=== PATIENT | female | born 2000 | race Caucasian/White ===

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

== ENCOUNTER 2019-03-09 08:49 | Emergency (ER) | payer OTHER ==
[2019-03-09 08:53] VITALS: BP 139/74
[2019-03-09 09:48] LABS: AMORPHOUS SEDIMENT,URINE TRACE /HPF; APPEARANCE,URINE CLOUDY; BILIRUBIN,URINE NEGATIVE (NEGATIVE); COLOR,URINE YELLOW; GLUCOSE, URINE NEGATIVE (NEGATIVE); KETONES,URINE NEGATIVE (NEGATIVE); LEUKOCYTE ESTERASE,URINE TRACE (NEGATIVE); NITRITE,URINE NEGATIVE (NEGATIVE); PROTEIN,URINE NEGATIVE (NEGATIVE); URINE SPECIFIC GRAVITY 1.025; UROBILINOGEN,URINE NEGATIVE mg/dL (<2.0)
--- NOTE | 2019-03-09 11:06 | ER Document Report ---
Entered by FANI MERCADO SCRIBE 03/09/19 0924 Acting as scribe for:MANNY MARTINEZ MD ED General - General Chief Complaint: Lower Abdominal Pain Stated Complaint: ABDOMIAL PAIN Time Seen by Provider: 03/09/19 09:17 Notes: Patient is a 18-year-old female presenting to the emergency department complaining of abdominal pain. Patient states that the pain began yesterday, while she was lying down watching TV. Patient describes the pain as "muscle spasms" or harsh cramping. Patient states that the pain is constant, she went to urgent care for the pain and they told her to go get an ultrasound done. Patient states that she has concern of a UTI, she has been experiencing normal vaginal discharge, burning, and some nausea. Patient states that her last menstrual period was about 2 weeks ago on February 23. Patient denies experiencing any vaginal discharge, vomiting, recent traumas, falls, or having pain like this before. TRAVEL OUTSIDE OF THE [place] IN LAST 30 DAYS: No - Related Data Allergies/Adverse Reactions: No Known Allergies Allergy (Verified 03/09/19 08:50) Past Medical History - General Information source: Patient - Social History Smoking Status: Never Smoker Cigarette use (# per day): No Chew tobacco use (# tins/day): No Frequency of alcohol use: None Drug Abuse: None Family History: Reviewed & Not Pertinent Patient has suicidal ideation: No - [facility] [place] Patient has homicidal ideation: No Pulmonary Medical History: Reports: Hx Asthma Musculoskeletal Medical History: Reports Hx Musculoskeletal Trauma Psychiatric Medical History: Reports: Hx Attention Deficit Hyperactivity Disorder, Hx Bipolar Disorder, Hx Depression, Hx Post Traumatic Stress Disorder Past Surgical History: Reports: Hx Oral Surgery - wisdom, Hx Tonsillectomy - Immunizations Immunizations up to date: Yes Hx Diphtheria, Pertussis, Tetanus Vaccination: Yes Review of Systems - Review of Systems Constitutional: No symptoms reported EENT: No symptoms reported Cardiovascular: No symptoms reported Respiratory: No symptoms reported Gastrointestinal: See HPI, Abdominal pain, Nausea. denies: Vomiting Genitourinary: See HPI, Burning Female Genitourinary: See HPI, Vaginal discharge Musculoskeletal: No symptoms reported Skin: No symptoms reported Hematologic/Lymphatic: No symptoms reported Neurological/Psychological: No symptoms reported -: Yes All other systems reviewed and negative Physical Exam - Vital signs Vitals: Temp Pulse Resp BP Pulse Ox 97.3 F 108 H 16 139/74 H 99 03/09/19 08:52 03/09/19 08:52 03/09/19 08:52 03/09/19 08:52 03/09/19 08:52 - Notes Notes: Physical Exam: General: Alert, appears well. HEENT: Normocephalic. Atraumatic. PERRL. Extraocular movements intact. Oropharynx clear. Neck: Supple. Non-tender. Respiratory: No respiratory distress. Clear and equal breath sounds bilaterally. Cardiovascular: Regular rate and rhythm. Abdominal: Normal Inspection. Non-tender. No distension. Normal Bowel Sounds. No rebound, no guarding. Back: Non-tender. No deformity or step off. Extremities: Moves all four extremities. Upper extremities: Normal inspection. Normal ROM. Lower extremities: Normal inspection. No edema. Normal ROM. Neurological: Normal cognition. AAOx4. Normal speech. Psychological: Normal affect. Normal Mood. Skin: Warm. Dry. Normal color. Course - Re-evaluation Re-evalutation: 03/09/19 11:05 Patient left the emergency department on her own will saying that it was taking too long for her ultrasound. I was not able to talk to her she left prior to me being informed. - Vital Signs Vital signs: Temp Pulse Resp BP Pulse Ox 97.3 F 108 H 16 139/74 H 99 03/09/19 08:52 03/09/19 08:52 03/09/19 08:52 03/09/19 08:52 03/09/19 08:52 - Laboratory Laboratory results interpreted by me: 03/09/19 09:29 Ur Leukocyte Esterase TRACE H Discharge - Discharge Clinical Impression: Abdominal pain Qualifiers: Abdominal location: right upper quadrant Qualified Code(s): R10.11 - Right upper quadrant pain Condition: Good Disposition: ELOPED I personally performed the services described in the documentation, reviewed and edited the documentation which was dictated to the scribe in my presence, and it accurately records my words and actions.
== END 2019-03-09 10:50 | disposition left against medical advice (07) ==
LOC: ER 08:49
DX: R10.11 Right upper quadrant pain (principal); R10.30 Lower abdominal pain, unspecified
CPT/HCPCS: 81001; 81025; 99281

== ENCOUNTER 2019-03-10 16:27 | Emergency (ER) | payer OTHER ==
[2019-03-10 17:13] VITALS: BP 124/75
--- NOTE | 2019-03-10 17:27 | ER Document Report ---
ED Medical Screen (RME) - General Chief Complaint: Abdominal Pain Stated Complaint: STOMACH PAIN Time Seen by Provider: 03/10/19 17:22 Mode of Arrival: Ambulatory Information source: Patient Notes: 18-year-old female presented to ED for complaint of abdominal pain x3 days with vomiting starting yesterday. States she is can keep fluids down but not food. She states she is vomited 3 times since yesterday. She denies any diarrhea. She denies any fever. States her last menstrual cycle was a month ago. She states that she has had some urinary frequency and urgency but that they have a urine yesterday and it was negative. She states she has had vaginal discharge but it is white. She states the pain is on the pelvis and the left abdomen. She states she used vapor but does not smoke cigarettes drink or do any drugs. I have greeted and performed a rapid initial assessment of this patient. A comprehensive ED assessment and evaluation of the patient, analysis of test results and completion of medical decision making process will be conducted by an additional ED providers. TRAVEL OUTSIDE OF THE [place] IN LAST 30 DAYS: No - Related Data Allergies/Adverse Reactions: No Known Allergies Allergy (Verified 03/09/19 08:50) Past Medical History - Social History Chew tobacco use (# tins/day): No Frequency of alcohol use: None Drug Abuse: None - Past Medical History Cardiac Medical History: Denies: Hx Heart Attack, Hx Hypertension Pulmonary Medical History: Reports: Hx Asthma Neurological Medical History: Denies: Hx Cerebrovascular Accident, Hx Seizures Renal/ Medical History: Denies: Hx Peritoneal Dialysis GI Medical History: Denies: Hx Hepatitis, Hx Hiatal Hernia, Hx Ulcer Musculoskeltal Medical History: Reports Hx Musculoskeletal Trauma Psychiatric Medical History: Reports: Hx Attention Deficit Hyperactivity Disorder, Hx Bipolar Disorder, Hx Depression, Hx Post Traumatic Stress Disorder Infectious Medical History: Denies: Hx Hepatitis Past Surgical History: Reports: Hx Oral Surgery - wisdom, Hx Tonsillectomy. Denies: Hx Mastectomy, Hx Open Heart Surgery, Hx Pacemaker - Immunizations Immunizations up to date: Yes Hx Diphtheria, Pertussis, Tetanus Vaccination: Yes Physical Exam - Vital signs Vitals: Temp Pulse Resp BP Pulse Ox 97.9 F 105 H 12 124/75 97 03/10/19 17:10 03/10/19 17:10 03/10/19 17:10 03/10/19 17:10 03/10/19 17:10 Course - Vital Signs Vital signs: Temp Pulse Resp BP Pulse Ox 97.9 F 105 H 12 124/75 97 03/10/19 17:10 03/10/19 17:10 03/10/19 17:10 03/10/19 17:10 03/10/19 17:10
[2019-03-10 18:12] LABS: ABSOLUTE BASOPHILS # (AUTO) 0.1 10^3/uL (0.0-0.2); ABSOLUTE EOSINOPHILS # (AUTO) 0.2 10^3/uL (0.0-0.6); ABSOLUTE LYMPHOCYTES (AUTO) 3.4 10^3/uL (0.5-4.7); ABSOLUTE NEUT (AUTO) 8.4 10^3/uL (1.7-8.2); BASOPHILS % (AUTO) 0.6 % (0-2); EOSINOPHILS % (AUTO) 1.6 % (0-6); HEMATOCRIT 43.6 % (36.0-47.0); HEMOGLOBIN 14.4 g/dL (12.0-15.5); MEAN CORPUSCULAR HEMOGLOBIN 29.5 pg (27.0-33.4); MEAN CORPUSCULAR HGB CONC 33.1 g/dL (32.0-36.0); MEAN CORPUSCULAR VOLUME 89 fl (80-97); MONOCYTES % (AUTO) 7.8 % (3-13); PLATELET COUNT 286 10^3/uL (150-450); RED BLOOD COUNT 4.89 10^6/uL (3.72-5.28); RED CELL DISTRIBUTION WIDTH 13.3 % (11.5-14.0); TOTAL CELLS COUNTED % (AUTO) 100 %; WHITE BLOOD COUNT 13.1 10^3/uL (4.0-10.5)
[2019-03-10 18:27] LABS: ALBUMIN 3.8 g/dL (3.7-5.6); ALKALINE PHOSPHATASE 55 U/L (50-135); ANION GAP 8 (5-19); ASPARTATE AMINO TRANSFERASE 22 U/L (5-30); BILIRUBIN,DIRECT 0.2 mg/dL (0.0-0.4); BILIRUBIN,TOTAL 0.3 mg/dL (0.2-1.3); BLOOD UREA NITROGEN 14 mg/dL (7-20); CALCIUM 9.1 mg/dL (8.4-10.2); CARBON DIOXIDE 27 mmol/L (22-30); CHLORIDE 104 mmol/L (98-107); GLUCOSE 70 mg/dL (75-110); POTASSIUM 4.3 mmol/L (3.6-5.0); TOTAL PROTEIN 6.2 g/dL (6.3-8.2)
[2019-03-10 18:28] LABS: APPEARANCE,URINE CLEAR; BILIRUBIN,URINE NEGATIVE (NEGATIVE); COLOR,URINE YELLOW; GLUCOSE, URINE NEGATIVE (NEGATIVE); KETONES,URINE NEGATIVE (NEGATIVE); LEUKOCYTE ESTERASE,URINE TRACE (NEGATIVE); NITRITE,URINE NEGATIVE (NEGATIVE); PROTEIN,URINE NEGATIVE (NEGATIVE); URINE SPECIFIC GRAVITY 1.027; UROBILINOGEN,URINE NEGATIVE mg/dL (<2.0)
--- NOTE | 2019-03-10 18:29 | RADIOLOGY REPORT (SQ) ---
EXAM DESCRIPTION: U/S NON-OB PELVIS TV W/O DOP COMPLETED DATE/TIME: 03/10/2019 6:11 pm REASON FOR STUDY: bilateral pelvic pain COMPARISON: None. TECHNIQUE: Dynamic and static grayscale images acquired of the pelvis via transvaginal approach and recorded on PACS. Additional selected color Doppler and spectral images recorded. LIMITATIONS: None. FINDINGS: UTERUS: Contour normal. No mass. ENDOMETRIAL STRIPE: No focal or generalized thickening. No masses. CERVIX: No nabothian cysts. RIGHT OVARY AND DOPPLER: Normal size. 2.7 cm cyst. Normal arterial vascular flow without evidence fo r torsion. LEFT OVARY AND DOPPLER: Normal size. 3.1 cm complex cyst, possibly hemorrhagic. Normal arterial vas cular flow without evidence for torsion. FREE FLUID: None noted. OTHER: No other significant finding. MEASUREMENTS: UTERUS: 7.2 x 4.3 x 3.2 cm ENDOMETRIAL STRIPE: 7 mm RIGHT OVARY: 3.5 x 4.1 x 3.1 cm LEFT OVARY: 3.5 x 3.1 x 3.1 cm IMPRESSION: 3.1 cm complex left ovarian cyst, possibly hemorrhagic. TECHNICAL DOCUMENTATION: JOB ID: [id number] [place]-72 2010 [employer]- All Rights Reserved Rev-12/03 Reading location - IP/workstation name: [email or web address]
[2019-03-10] MEDS ORDERED: KETOROLAC TROMETHAMINE 60 MG/2 ML SDV IM ONE (19:43)
--- NOTE | 2019-03-10 20:15 | ER Document Report ---
ED General - General Chief Complaint: Abdominal Pain Stated Complaint: STOMACH PAIN Time Seen by Provider: 03/10/19 17:22 Primary Care Provider: ROSENDO KINCAID MD [ACTIVE STAFF] - Follow up in 3-5 days Mode of Arrival: Ambulatory Information source: Patient, [facility] Records Notes: 18-year-old female with asthma, depression, bipolar disorder presents with 3 days of left lower quadrant pain that she describes as sharp, intermittent and without radiation. Patient states that she did have associated nausea and vomiting that has resolved. She denies any dysuria, hematuria, vaginal discharge. She is sexually active with her only and has no concern for STD. She does report recent STD testing in [place]. Patient does report a family history of ovarian cysts. Patient did come to the emergency department yesterday but left prior to completion of her evaluation because she stated that it was taking too long for the ultrasound to be completed. TRAVEL OUTSIDE OF THE [place] IN LAST 30 DAYS: No - HPI Onset: Other Onset/Duration: Gradual, Intermittent, Better Quality of pain: Sharp Severity: Mild Associated symptoms: Nausea - Resolved, Vomiting - Resolved. denies: Chest pain, Diarrhea, Fever, Shortness of breath, Sweating Exacerbated by: Denies Relieved by: Denies Similar symptoms previously: Yes Recently seen / treated by doctor: No - Related Data Allergies/Adverse Reactions: No Known Allergies Allergy (Verified 03/09/19 08:50) Past Medical History - General Information source: Patient - Social History Smoking Status: Never Smoker Chew tobacco use (# tins/day): No Frequency of alcohol use: None Drug Abuse: None Lives with: Spouse/Significant other Family History: Reviewed & Not Pertinent Patient has suicidal ideation: No Patient has homicidal ideation: No - Past Medical History Cardiac Medical History: Denies: Hx Heart Attack, Hx Hypertension Pulmonary Medical History: Reports: Hx Asthma Neurological Medical History: Denies: Hx Cerebrovascular Accident, Hx Seizures Renal/ Medical History: Denies: Hx Peritoneal Dialysis GI Medical History: Denies: Hx Hepatitis, Hx Hiatal Hernia, Hx Ulcer Musculoskeletal Medical History: Reports Hx Musculoskeletal Trauma Psychiatric Medical History: Reports: Hx Attention Deficit Hyperactivity Disorder, Hx Bipolar Disorder, Hx Depression, Hx Post Traumatic Stress Disorder Infectious Medical History: Denies: Hx Hepatitis Past Surgical History: Reports: Hx Oral Surgery - wisdom, Hx Tonsillectomy. Denies: Hx Mastectomy, Hx Open Heart Surgery, Hx Pacemaker - Immunizations Immunizations up to date: Yes Hx Diphtheria, Pertussis, Tetanus Vaccination: Yes Review of Systems - Review of Systems Notes: REVIEW OF SYSTEMS: CONSTITUTIONAL : Denies fever, chills, or sweats. Denies recent illness. Denies weight loss, recent hospitalizations. EENT: Denies visual changes, eye pain. Denies sore throat, oral lesions, difficulty swallowing. CARDIOVASCULAR: Denies chest pain. Denies palpitations. Denies lower extremity edema. RESPIRATORY: Denies cough. Denies shortness of breath, wheezing. GASTROINTESTINAL: Denies abdominal distention. Denies diarrhea. Denies blood in vomitus, stools, or per rectum. Denies black, tarry stools. Denies constipation. GENITOURINARY: Denies difficulty urinating, painful urination, frequency, blood in urine, or vaginal discharge. MUSCULOSKELETAL: Denies back or neck pain or stiffness. Denies joint pain or swelling. SKIN: Denies rash, lesions or sores. HEMATOLOGIC : Denies easy bruising or bleeding. LYMPHATIC: Denies swollen glands. NEUROLOGICAL: Denies confusion or altered mental status. Denies loss of consciousness. Denies dizziness or lightheadedness. Denies headache. Denies weakness or paralysis. Denies problems difficulty with ambulation, slurred speech. Denies sensory loss, numbness, or tingling. Denies seizures. PSYCHIATRIC: Denies anxiety or stress. Denies depression, suicidal ideation, or homicidal ideation. Denies visual or auditory hallucinations. Physical Exam - Vital signs Vitals: Temp Pulse Resp BP Pulse Ox 97.9 F 105 H 12 124/75 97 03/10/19 17:10 03/10/19 17:10 03/10/19 17:10 03/10/19 17:10 03/10/19 17:10 - Notes Notes: PHYSICAL EXAMINATION: GENERAL: Well-appearing, well-nourished and in no acute distress. HEAD: Atraumatic, normocephalic. EYES: Pupils equal round and reactive to light, extraocular movements intact, conjunctiva are normal. ENT: Nares patent, oropharynx clear without exudates. Moist mucous membranes. NECK: Normal range of motion, supple without lymphadenopathy LUNGS: Breath sounds clear to auscultation bilaterally and equal. No wheezes rales or rhonchi. HEART: Regular rate and rhythm without murmurs ABDOMEN: Soft, tenderness with palpation to the left lower quadrant, n ondistended abdomen. No guarding, no rebound. No masses appreciated. Female : Declined Musculoskeletal: Normal range of motion, no pitting or edema. No cyanosis. NEUROLOGICAL: Cranial nerves grossly intact. Normal speech, normal gait. Normal sensory, motor exams PSYCH: Normal mood, normal affect. SKIN: Warm, Dry, normal turgor, no rashes or lesions noted. Course - Re-evaluation Re-evalutation: 03/10/19 20:21 Laboratory 03/10/19 03/10/19 03/10/19 17:30 17:40 17:40 WBC 13.1 H RBC 4.89 Hgb 14.4 Hct 43.6 MCV 89 MCH 29.5 MCHC 33.1 RDW 13.3 Plt Count 286 Lymph % (Auto) 26.0 Porter % (Auto) 7.8 Eos % (Auto) 1.6 Baso % (Auto) 0.6 Absolute Neuts (auto) 8.4 H Absolute Lymphs (auto) 3.4 Absolute Monos (auto) 1.0 Absolute Eos (auto) 0.2 Absolute Basos (auto) 0.1 Seg Neutrophils % 64.0 Sodium 138.7 Potassium 4.3 Chloride 104 Carbon Dioxide 27 Anion Gap 8 BUN 14 Creatinine 0.73 Est GFR ( Amer) > 60 Est GFR (MDRD) Non-Af > 60 Glucose 70 L Calcium 9.1 Total Bilirubin 0.3 Direct Bilirubin 0.2 Neonat Total Bilirubin Not Reportable Neonat Direct Bilirubin Not Reportable Neonat Indirect Bili Not Reportable AST 22 ALT 15 Alkaline Phosphatase 55 Total Protein 6.2 L Albumin 3.8 Beta HCG, Quant < 2.39 Total Beta HCG NEGATIVE Urine Color YELLOW Urine Appearance CLEAR Urine pH 5.0 Ur Specific [place] 1.027 Urine Protein NEGATIVE Urine Glucose (UA) NEGATIVE Urine Ketones NEGATIVE Urine Blood NEGATIVE Urine Nitrite NEGATIVE Urine Bilirubin NEGATIVE Urine Urobilinogen NEGATIVE Ur Leukocyte Esterase TRACE H Urine WBC (Auto) 17 Urine RBC (Auto) 1 Squamous Epi Cells Auto <1 Urine Mucus (Auto) FEW Urine Ascorbic Acid NEGATIVE Transvaginal US 03/10/19 17:23 IMPRESSION: 3.1 cm complex left ovarian cyst, possibly hemorrhagic. Temp Pulse Resp BP Pulse Ox 97.9 F 105 H 12 124/75 97 03/10/19 17:10 03/10/19 17:10 03/10/19 17:10 03/10/19 17:10 03/10/19 17:10 18-year-old female presents with left lower quadrant abdominal pain for 3 days. Vitals were reviewed upon arrival and patient is mildly tachycardic but afebrile. She does not appear toxic or dehydrated. She is in no acute distress. Exam is significant for mild tenderness with palpation to the left lower quadrant without guarding or rebound. CBC, CMP, urinalysis and tests are unremarkable. Transvaginal ultrasound was obtained and does show a 3.1 cm complex left ovarian cyst which is possibly hemorrhagic. Patient did receive IM Toradol. She states she has nausea medication at home. She was provided copies of her ultrasound and instructed that she must follow-up with MR TEACHER. Patient was discharged home with instructions to take Motrin, Mayer for severe pain. Patient is agreeable and requesting discharge home as she states that "I am very hungry and tired of being here". Patient was evaluated and treated as appropriate for the patient's presenting symptoms and complaint, with consideration of any critical or life threatening conditions that may be associated with their obtained history and exam as noted above. All results were discussed with patient. Patient provided the opportunity to ask questions, and express concerns. Patient was educated on treatments based on their presumed diagnosis as noted above. At this time we will discharge the patient with return precautions and follow-up recommendations. Verbal discharge instructions given a the bedside. Medication warnings reviewed. Patient is in agreement with this plan and has verbalized understanding of return precautions. After careful consideration I feel that that patient can be safely discharged from the emergency department, they were advised to followup with a primary care physician in 2-3 days. Dictation on this chart was performed using voice recognition software and may result in unintended grammatical, spelling, syntax or errors. - Vital Signs Vital signs: Temp Pulse Resp BP Pulse Ox 97.9 F 105 H 12 124/75 97 03/10/19 17:10 03/10/19 17:10 03/10/19 17:10 03/10/19 17:10 03/10/19 17:10 - Laboratory Result Diagrams: 03/10/19 17:40 03/10/19 17:40 Laboratory results interpreted by me: 03/10/19 03/10/19 03/10/19 17:30 17:40 17:40 WBC 13.1 H Absolute Neuts (auto) 8.4 H Glucose 70 L Total Protein 6.2 L Ur Leukocyte Esterase TRACE H - Diagnostic Test Radiology reviewed: Image reviewed, Reports reviewed Discharge - Discharge Clinical Impression: Left lower quadrant abdominal pain, Hemorrhagic cyst of left ovary Condition: Good Disposition: HOME, SELF-CARE Instructions: Abdominal Pain ([facility]), Nausea or Vomiting, Nonspecific ([facility]), Ovarian Cyst ([facility]), Toradol Injection ([facility]) Additional Instructions: Today been diagnosed with an ovarian cyst. These typically occur in the middle of your typical menstrual cycle. The pain should last for no more than 3-4 days. For your pain: Take ibuprofen 600 mg and acetaminophen 1000 mg every 6 hours together as needed for pain. If this does not control your pain you may take 1 Mayer every 6 hours hours as needed. Please be very careful about using the oral Mayer and only use this for severe pain. Please follow-up with your MR TEACHER regarding today's visit. If you have multiple recurrent cyst that continue to cause you pain like this, you may require hormone therapy such as oral control pills to prevent recurrence of the same. Return if you develop fever, nausea, vomiting, worsening abdominal pain, pass out, or have any other symptoms that are worrisome to you. Prescriptions: Hydrocodone/Acetaminophen [Mayer 5-325 mg Tablet] 1 tab PO Q6H #10 tablet Forms: Smoking Cessation Education Referrals: ROSENDO KINCAID MD [ACTIVE STAFF] - Follow up in 3-5 days
== END 2019-03-10 20:30 | disposition home or self-care (01) ==
LOC: ER 16:27
DX: N83.202 Unspecified ovarian cyst, left side (principal); R10.32 Left lower quadrant pain; R11.2 Nausea with vomiting, unspecified; J45.909 Unspecified asthma, uncomplicated
CPT/HCPCS: 99284; 96374; 36415; 84702; 85025; 80053; 81001; 76830; J1885

== ENCOUNTER 2019-07-02 00:43 | Emergency (ER) | payer OTHER ==
[2019-07-02 01:48] LABS: APPEARANCE,URINE CLEAR; BILIRUBIN,URINE NEGATIVE (NEGATIVE); COLOR,URINE YELLOW; GLUCOSE, URINE NEGATIVE (NEGATIVE); KETONES,URINE NEGATIVE (NEGATIVE); LEUKOCYTE ESTERASE,URINE NEGATIVE (NEGATIVE); NITRITE,URINE NEGATIVE (NEGATIVE); PROTEIN,URINE NEGATIVE (NEGATIVE); URINE SPECIFIC GRAVITY 1.021; UROBILINOGEN,URINE NEGATIVE mg/dL (<2.0)
[2019-07-02 03:34] VITALS: BP 120/78
== END 2019-07-02 04:54 | disposition left against medical advice (07) ==
LOC: ER 00:43
DX: Z53.21 Procedure and treatment not carried out due to patient leaving prior to being seen by health care provider (principal)
CPT/HCPCS: 81001; 81025

== ENCOUNTER 2019-07-20 19:16 | Emergency (ER) | payer MEDICAID, OTHER ==
[2019-07-20] MEDS ORDERED: ONDANSETRON 4 MG TAB.RAPDIS PO ONE (21:13)
[2019-07-20] MEDS ORDERED: NORMAL SALINE 1000 ML 1,000 ML IV ONE (21:14)
--- NOTE | 2019-07-20 21:15 | ER Document Report ---
ED Medical Screen (RME) - General Chief Complaint: Vomiting Stated Complaint: VOMITING Time Seen by Provider: 07/20/19 21:11 TRAVEL OUTSIDE OF THE [place] IN LAST 30 DAYS: No - HPI Notes: 07/20/19 21:14 Patient is a 19-year-old female no significant past medical history presents complaining of nausea, vomiting, right upper quadrant abdominal pain that began over the past several days. Patient states that she is 2 months late on her menstrual cycle and had questionable urine test at the health department. Denies drug allergies. No fever. I have treated and performed a rapid initial assessment of this patient. A comprehensive ED assessment and evaluation of the patient, analysis of test results and completion of medical decision making process will be conducted by additional ED providers. PHYSICAL EXAMINATION: GENERAL: Well-appearing, well-nourished and in no acute distress. A&Ox4. Answers questions appropriately. Abdomen: Limited exam in triage, mild tenderness right upper qu adrant/epigastrium. No CVA tenderness. - Related Data Allergies/Adverse Reactions: No Known Allergies Allergy (Verified 07/20/19 21:09) Past Medical History - Past Medical History Cardiac Medical History: Denies: Hx Heart Attack, Hx Hypertension Pulmonary Medical History: Reports: Hx Asthma Neurological Medical History: Denies: Hx Cerebrovascular Accident, Hx Seizures Renal/ Medical History: Denies: Hx Peritoneal Dialysis GI Medical History: Denies: Hx Hepatitis, Hx Hiatal Hernia, Hx Ulcer Musculoskeltal Medical History: Reports Hx Musculoskeletal Trauma Psychiatric Medical History: Reports: Hx Attention Deficit Hyperactivity Disorder, Hx Bipolar Disorder, Hx Depression, Hx Post Traumatic Stress Disorder Infectious Medical History: Denies: Hx Hepatitis Past Surgical History: Reports: Hx Oral Surgery - wisdom, Hx Tonsillectomy. Denies: Hx Mastectomy, Hx Open Heart Surgery, Hx Pacemaker - Immunizations Immunizations up to date: Yes Hx Diphtheria, Pertussis, Tetanus Vaccination: Yes Physical Exam - Vital signs Vitals: Temp Pulse Resp BP Pulse Ox 97.8 F 108 H 16 149/72 H 98 07/20/19 19:31 07/20/19 19:31 07/20/19 19:31 07/20/19 19:31 07/20/19 19:31 Course - Vital Signs Vital signs: Temp Pulse Resp BP Pulse Ox 97.8 F 108 H 16 149/72 H 98 07/20/19 19:31 07/20/19 19:31 07/20/19 19:31 07/20/19 19:31 07/20/19 19:31
[2019-07-20 22:26] LABS: ABSOLUTE EOSINOPHILS # (AUTO) 0.1 10^3/uL (0.0-0.6); ABSOLUTE LYMPHOCYTES (AUTO) 2.4 10^3/uL (0.5-4.7); ABSOLUTE MONOCYTES (AUTO) 0.7 10^3/uL (0.1-1.4); ABSOLUTE NEUT (AUTO) 6.4 10^3/uL (1.7-8.2); BASOPHILS % (AUTO) 0.4 % (0-2); EOSINOPHILS % (AUTO) 0.9 % (0-6); HEMATOCRIT 41.3 % (36.0-47.0); LYMPHOCYTES % (AUTO) 25.1 % (13-45); MEAN CORPUSCULAR HEMOGLOBIN 29.6 pg (27.0-33.4); MEAN CORPUSCULAR VOLUME 87 fl (80-97); MONOCYTES % (AUTO) 7.5 % (3-13); PLATELET COUNT 263 10^3/uL (150-450); RED BLOOD COUNT 4.73 10^6/uL (3.72-5.28); RED CELL DISTRIBUTION WIDTH 13.5 % (11.5-14.0); SEGMENTED NEUTROPHILS % (AUTO) 66.1 % (42-78); TOTAL CELLS COUNTED % (AUTO) 100 %; WHITE BLOOD COUNT 9.6 10^3/uL (4.0-10.5)
[2019-07-20 22:34] LABS: APPEARANCE,URINE CLOUDY; BILIRUBIN,URINE NEGATIVE (NEGATIVE); COLOR,URINE YELLOW; GLUCOSE, URINE NEGATIVE (NEGATIVE); KETONES,URINE NEGATIVE (NEGATIVE); PROTEIN,URINE 30 mg/dL (NEGATIVE); UROBILINOGEN,URINE NEGATIVE mg/dL (<2.0)
[2019-07-20 22:43] LABS: ALBUMIN 4.8 g/dL (3.5-5.0); ALKALINE PHOSPHATASE 70 U/L (38-126); ANION GAP 12 (5-19); ASPARTATE AMINO TRANSFERASE 29 U/L (14-36); BILIRUBIN,DIRECT 0.3 mg/dL (0.0-0.4); BILIRUBIN,TOTAL 0.3 mg/dL (0.2-1.3); BLOOD UREA NITROGEN 21 mg/dL (7-20); CALCIUM 9.9 mg/dL (8.4-10.2); CARBON DIOXIDE 28 mmol/L (22-30); CHLORIDE 101 mmol/L (98-107); GLUCOSE 82 mg/dL (75-110); POTASSIUM 4.6 mmol/L (3.6-5.0)
--- NOTE | 2019-07-20 23:38 | RADIOLOGY REPORT (SQ) ---
CLINICAL HISTORY: RUQ pain COMPARISON: None. TECHNIQUE: US ABDOMEN LIMITED on 07/20/2019 9:13 PM SHOOTER'S HELPER FINDINGS: Liver is fatty in echotexture. Common bile but measures 4 mm. Portal vein is patent. Gallbladder is slightly contracted without wall thickening, stones or pericholecystic fluid. Right kidney measures 9.7 cm. IMPRESSION: Hepatic steatosis. Otherwise unremarkable study.
--- NOTE | 2019-07-21 00:08 | ER Document Report ---
ED General - General Chief Complaint: Abdominal Pain Stated Complaint: VOMITING Time Seen by Provider: 07/20/19 21:11 TRAVEL OUTSIDE OF THE [place] IN LAST 30 DAYS: No - HPI Notes: Ms. Ferrer is a 19-year-old nulligravida who has not had a menstrual period in 2 months. She went to the health department and was told that she had "indeterminate" test. She basically came in here tonight because she went to find out if she was or not. She reports that she has been having some unusual cravings for food. She is not on any contraception. Takes no regular medications. No known allergies. Says she gets some occasional bloating and indigestion. She has intermittently complained of some cramping in right upper quadrant. - Related Data Allergies/Adverse Reactions: No Known Allergies Allergy (Verified 07/20/19 22:35) Past Medical History - General Information source: Patient, Relative - Social History Smoking Status: Never Smoker Family History: Reviewed & Not Pertinent Patient has suicidal ideation: No Patient has homicidal ideation: No - Past Medical History Cardiac Medical History: Denies: Hx Heart Attack, Hx Hypertension Pulmonary Medical History: Reports: Hx Asthma Neurological Medical History: Denies: Hx Cerebrovascular Accident, Hx Seizures Renal/ Medical History: Denies: Hx Peritoneal Dialysis GI Medical History: Denies: Hx Hepatitis, Hx Hiatal Hernia, Hx Ulcer Musculoskeletal Medical History: Reports Hx Musculoskeletal Trauma Psychiatric Medical History: Reports: Hx Attention Deficit Hyperactivity Disorder, Hx Bipolar Disorder, Hx Depression, Hx Post Traumatic Stress Disorder Infectious Medical History: Denies: Hx Hepatitis Past Surgical History: Reports: Hx Oral Surgery - wisdom, Hx Tonsillectomy. Denies: Hx Mastectomy, Hx Open Heart Surgery, Hx Pacemaker - Immunizations Immunizations up to date: Yes Hx Diphtheria, Pertussis, Tetanus Vaccination: Yes Review of Systems - Review of Systems Notes: Constitutional: Negative for fever. HENT: Negative for sore throat. Eyes: Negative for visual changes. Cardiovascular: Negative for chest pain. Respiratory: Negative for shortness of breath. Gastrointestinal: As per HPI. Genitourinary: As per HPI. Musculoskeletal: Negative for back pain. Skin: Negative for rash. Neurological: Negative for headaches, weakness or numbness. 10 point ROS negative except as marked above and in HPI. Physical Exam - Vital signs Vitals: Temp Pulse Resp BP Pulse Ox 97.8 F 108 H 16 149/72 H 98 07/20/19 19:31 07/20/19 19:31 07/20/19 19:31 07/20/19 19:31 07/20/19 19:31 - Notes Notes: GENERAL: Somewhat obese female of approximately stated age well-developed well- nourished appearing in no acute distress. SKIN: Good turgor no rashes. HEAD: Normocephalic atraumatic. EYES: PERRLA. EOMI. Conjunctivae and sclerae clear. EARS: CANALS AND TMS CLEAR. NOSE: CLEAR. MOUTH: Moist mucosa. Good dentition. No stridor or edema. No drooling. NECK: Supple. No masses or thyromegaly. No adenopathy. Carotids 2+ without bruits. No JVD. BACK: Symmetrical without tenderness. CHEST: Respirations unlabored. Breath sounds clear and symmetrical. HEART: Regular rhythm. No murmur gallop or rub. ABDOMEN: Obese. Soft nontender without masses, organomegaly or rebound. Bowel sounds normally active. No bruits. GENITALIA: Deferred. EXTREMITIES: No edema. No calf tenderness. Cap refill less than 1.5 seconds. Dorsalis pedis and posterior tibial pulses 3+ and symmetrical. NEUROLOGICAL: GCS 15. Alert and oriented x3. Normal gait. Fluent speech. Cranial nerves II through XII intact. Sensorimotor and cerebellar normal. Normal tone. PSYCHIATRIC: Appropriate affect. Course - Re-evaluation Re-evalutation: 07/21/19 00:05 test is negative here. Abdominal ultrasound has been ordered by the midlevel provider for saw this patient this was reported by the radiologist as showing some hepatic steatosis. I talked to the patient and her male proof tester and recommended outpatient follow-up with a glove parts cutter regarding her secondary amenorrhea. - Vital Signs Vital signs: Temp Pulse Resp BP Pulse Ox 97.8 F 108 H 16 149/72 H 98 07/20/19 19:31 07/20/19 19:31 07/20/19 19:31 07/20/19 19:31 07/20/19 19:31 - Laboratory Result Diagrams: 07/20/19 21:35 07/20/19 21:35 Laboratory results interpreted by me: 07/20/19 07/20/19 21:35 21:35 BUN 21 H Urine Protein 30 H Leukocyte Esterase Rfl TRACE H Discharge - Discharge Clinical Impression: Secondary amenorrhea Condition: Stable Disposition: HOME, SELF-CARE Additional Instructions: Follow-up with referral glove parts cutter. Referrals: KIARA BRIGHT MD [ACTIVE STAFF] - Follow up as needed
[2019-07-21 00:19] VITALS: BP 118/62
== END 2019-07-21 00:19 | disposition home or self-care (01) ==
LOC: ER 19:16
DX: N91.1 Secondary amenorrhea (principal); Z32.02 Encounter for pregnancy test, result negative; K76.0 Fatty (change of) liver, not elsewhere classified; R10.11 Right upper quadrant pain; E66.9 Obesity, unspecified; J45.909 Unspecified asthma, uncomplicated
CPT/HCPCS: 99284; 96360; 36415; 84702; 83690; 85025; 80053; 81001; 76705; J7030

== ENCOUNTER 2019-08-06 17:40 | Emergency (ER) | payer MEDICAID ==
[2019-08-06 17:49] VITALS: BP 109/75
--- NOTE | 2019-08-06 18:09 | ER Document Report ---
HPI - HPI Time Seen by Provider: 08/06/19 18:03 Pain Level: 1 Notes: Patient is a 19-year-old female no significant past medical history aside from asthma who presents complaining of right wrist pain status post injury yesterday. Patient states that she hit her wrist off of a desk. She has had some pain in that area since then but does not radiate. Denies drug allergies. She does not want any Tylenol or Motrin at this time. Denies any headache, fever, URI, sore throat, chest pain, palpitations, syncope, cough, shortness of breath, wheeze, dyspnea, abdominal pain, nausea/vomiting/diarrhea, urinary retention, dysuria, hematuria, loss of control of bowel or bladder, numbness/tingling, muscle paralysis/weakness, or rash. - ROS Systems Reviewed and Negative: Yes All other systems reviewed and negative - REPRODUCTIVE Reproductive: DENIES: : Past Medical History - Social History Smoking Status: Current Some Day Smoker Family History: Reviewed & Not Pertinent Patient has suicidal ideation: No Patient has homicidal ideation: No - Past Medical History Cardiac Medical History: Denies: Hx Heart Attack, Hx Hypertension Pulmonary Medical History: Reports: Hx Asthma Neurological Medical History: Denies: Hx Cerebrovascular Accident, Hx Seizures Renal/ Medical History: Denies: Hx Peritoneal Dialysis GI Medical History: Denies: Hx Hepatitis, Hx Hiatal Hernia, Hx Ulcer Musculoskeletal Medical History: Reports Hx Musculoskeletal Trauma Psychiatric Medical History: Reports: Hx Attention Deficit Hyperactivity Disorder, Hx Bipolar Disorder, Hx Depression, Hx Post Traumatic Stress Disorder Infectious Medical History: Denies: Hx Hepatitis Past Surgical History: Reports: Hx Oral Surgery - wisdom, Hx Tonsillectomy. Denies: Hx Mastectomy, Hx Open Heart Surgery, Hx Pacemaker - Immunizations Immunizations up to date: Yes Hx Diphtheria, Pertussis, Tetanus Vaccination: Yes Vertical Provider Document - CONSTITUTIONAL Agree With Documented VS: Yes Notes: PHYSICAL EXAMINATION: GENERAL: Well-appearing, well-nourished and in no acute distress. HEAD: Atraumatic, normocephalic. NECK: Normal range of motion, supple without lymphadenopathy. No midline tenderness. LUNGS: Breath sounds clear to auscultation bilaterally and equal. No wheezes rales or rhonchi. HEART: Regular rate and rhythm without murmurs, rubs, gallops. Musculoskeletal: Rt hand/wrist: No erythema, warmth, ecchymosis, deformity, or swelling noted. N/V intact distal. FROM to passive/active at the wrist. Strength 5+/5 to usability strategist. No scaphoid tenderness. + tenderness distal ulnar wrist to palp. No other bony tenderness. Gamekeeper negative. Extremities: No cyanosis, clubbing, or edema b/l. Peripheral pulses 2+. Capillary refill less than 3 seconds. NEUROLOGICAL: Normal speech, normal gait. Normal sensory, motor exams otherwise unremarkable PSYCH: Normal mood, normal affect. SKIN: see above. No rash - INFECTION CONTROL TRAVEL OUTSIDE OF THE [place] IN LAST 30 DAYS: No Course - Re-evaluation Re-evalutation: 08/06/19 Patient is an afebrile, well-hydrated, 19-year-old female who presents to the ED with rt wrist pain which I suspect to be a contusion. Vitals are acceptable without any significant tachycardia, tachypnea, or hypoxia. PE is otherwise unremarkable for any neurovascular compromise, obvious tendon/ligament rupture, obvious fracture/dislocation, septic joint. X-ray was unremarkable for any acute pathology. Cock up splint provided today. Patient declined any Tylenol or ice. Patient is nontoxic-appearing. No other labs or imaging warranted at this time based on H&P. Conservative measures otherwise for symptoms. Recheck with your PCM in 3-5 days. Consider consult orthopedics. Return to the ED with any worsening/concerning symptoms otherwise as reviewed in discharge. Patient is in agreement. - Vital Signs Vital signs: Temp Pulse Resp BP Pulse Ox 98.4 F 95 20 109/75 100 08/06/19 17:48 08/06/19 17:48 08/06/19 17:48 08/06/19 17:48 08/06/19 17:48 Discharge - Discharge Clinical Impression: Right wrist pain Condition: Stable Disposition: HOME, SELF-CARE Additional Instructions: Rest, Ice, Compression, Elevation Tylenol/ibuprofen as needed Light stretches daily Strength exercises as able Moist heat and massage may help F/u with your PCP in 3-5 days for a recheck Consider consult(s) with Orthopedics/physical therapy for ongoing/worsening symptoms Return to the ED with any worsening symptoms and/or development of fever, headache, chest pain, palpitations, syncope, shortness of breath, trouble breathing, abdominal pain, n/v/d, muscle weakness/paralysis, numbness/tingling, swelling, redness, or other worsening symptoms that are concerning to you. Referrals: [facility] ([facility]) [Provider Group] - Follow up as needed
--- NOTE | 2019-08-06 18:59 | RADIOLOGY REPORT (SQ) ---
EXAM DESCRIPTION: WRIST RIGHT 3 VIEWS COMPLETED DATE/TIME: 08/06/2019 6:33 pm REASON FOR STUDY: rt ulnar wrist pain s/p injury COMPARISON: None. EXAM PARAMETERS: NUMBER OF VIEWS: Three views. TECHNIQUE: AP, lateral and oblique radiographic images acquired of the right wrist. LIMITATIONS: None. FINDINGS: MINERALIZATION: Normal. BONES: No acute fracture or dislocation. No worrisome bone lesions. JOINTS: No effusion. SOFT TISSUES: No significant soft tissue swelling. No radiopaque foreign body. OTHER: No other significant finding. IMPRESSION: NO FRACTURE. TECHNICAL DOCUMENTATION: JOB ID: [id number] [id number] [employer]- All Rights Reserved Reading location - IP/workstation name: [email or web address]
== END 2019-08-06 19:11 | disposition home or self-care (01) ==
LOC: ER 17:40
DX: M25.531 Pain in right wrist (principal); W22.03XA Walked into furniture, initial encounter; F17.200 Nicotine dependence, unspecified, uncomplicated; J45.909 Unspecified asthma, uncomplicated; I10 Essential (primary) hypertension
CPT/HCPCS: 99283; 73110; L3908

== ENCOUNTER 2019-10-07 17:56 | Emergency (ER) | payer MEDICAID ==
[2019-10-07 17:59] VITALS: BP 128/77
--- NOTE | 2019-10-07 18:03 | ER Document Report ---
HPI - HPI Time Seen by Provider: 10/07/19 17:59 Onset: Last week Onset/Duration: Waxing and waning Quality of pain: Achy Associated Symptoms: None Notes: This 19-year-old female presented to the emergency room today stating that she last had a full menstrual period May she spotted in July she has not had a menstrual period since she is historically regular on her menstrual. States s he followed up with her MANAGER UNIT in July and has not followed up since. - REPRODUCTIVE Reproductive: DENIES: : Past Medical History - Social History Smoking Status: Current Every Day Smoker Cigarette use (# per day): Yes Chew tobacco use (# tins/day): No Smoking Education Provided: No Family History: Reviewed & Not Pertinent - Past Medical History Cardiac Medical History: Denies: Hx Heart Attack, Hx Hypertension Pulmonary Medical History: Reports: Hx Asthma Neurological Medical History: Denies: Hx Cerebrovascular Accident, Hx Seizures Renal/ Medical History: Denies: Hx Peritoneal Dialysis GI Medical History: Denies: Hx Hepatitis, Hx Hiatal Hernia, Hx Ulcer Musculoskeletal Medical History: Reports Hx Musculoskeletal Trauma Psychiatric Medical History: Reports: Hx Attention Deficit Hyperactivity Disorder, Hx Bipolar Disorder, Hx Depression, Hx Post Traumatic Stress Disorder Infectious Medical History: Denies: Hx Hepatitis Past Surgical History: Reports: Hx Oral Surgery - wisdom, Hx Tonsillectomy. Denies: Hx Mastectomy, Hx Open Heart Surgery, Hx Pacemaker - Immunizations Immunizations up to date: Yes Hx Diphtheria, Pertussis, Tetanus Vaccination: Yes Vertical Provider Document - CONSTITUTIONAL Exam Limitations: No Limitations - INFECTION CONTROL TRAVEL OUTSIDE OF THE [place] IN LAST 30 DAYS: No - HEENT HEENT: Atraumatic, Conjuctival Injection, Normocephalic, PERRLA - NECK Neck: Normal Inspection - RESPIRATORY Respiratory: Breath Sounds Normal - CARDIOVASCULAR Cardiovascular: Regular Rate, Regular Rhythm Course - Vital Signs Vital signs: Temp Pulse Resp BP Pulse Ox 97.8 F 93 18 128/77 H 98 10/07/19 17:59 10/07/19 17:59 10/07/19 17:59 10/07/19 17:59 10/07/19 17:59 - Laboratory Laboratory results interpreted by me: 10/07/19 18:55 Labs- All tests 24 hr 10/07/19 18:23 Urine Color YELLOW Urine Appearance CLEAR Urine pH 7.0 Ur Specific [place] 1.030 Urine Protein 30 H Urine Glucose (UA) NEGATIVE Urine Ketones NEGATIVE Urine Blood NEGATIVE Urine Nitrite NEGATIVE Urine Bilirubin NEGATIVE Urine Urobilinogen NEGATIVE Ur Leukocyte Esterase NEGATIVE Urine WBC (Auto) 2 Urine RBC (Auto) 2 Squamous Epi Cells Auto 1 Urine Mucus (Auto) MANY Urine Ascorbic Acid NEGATIVE Urine HCG, Qual NEGATIVE Discharge - Discharge Clinical Impression: Mittelschmerz phenomenon Condition: Good Disposition: HOME, SELF-CARE Additional Instructions: Must follow-up with MANAGER UNIT in 2 to 3 days. Increase fluid intake rest return to the emergency room for any change worsening condition. Medicine as prescribed. Return for any change worsening condition. Prescriptions: Naproxen Sodium [Naproxen Sodium ER] 500 mg PO Q12 PRN #20 tablet.sa PRN Reason:
[2019-10-07 18:31] LABS: APPEARANCE,URINE CLEAR; BILIRUBIN,URINE NEGATIVE (NEGATIVE); COLOR,URINE YELLOW; GLUCOSE, URINE NEGATIVE (NEGATIVE); KETONES,URINE NEGATIVE (NEGATIVE); LEUKOCYTE ESTERASE,URINE NEGATIVE (NEGATIVE); NITRITE,URINE NEGATIVE (NEGATIVE); PROTEIN,URINE 30 mg/dL (NEGATIVE); UROBILINOGEN,URINE NEGATIVE mg/dL (<2.0)
== END 2019-10-07 19:02 | disposition home or self-care (01) ==
LOC: ER 17:56
DX: N94.0 Mittelschmerz (principal); F17.210 Nicotine dependence, cigarettes, uncomplicated; J45.909 Unspecified asthma, uncomplicated
CPT/HCPCS: 81001; 81025; 99284

== ENCOUNTER 2019-10-18 08:16 | Emergency (ER) | payer MEDICAID ==
--- NOTE | 2019-10-18 08:44 | ER Document Report ---
ED General - General Mode of Arrival: Ambulatory Information source: Patient TRAVEL OUTSIDE OF THE [place] IN LAST 30 DAYS: No - General Chief Complaint: Eye Problem Stated Complaint: EYE IRRITATION Time Seen by Provider: 10/18/19 08:44 Primary Care Provider: BUTCH JACQUES MD [ACTIVE STAFF] - Follow up in 3-5 days - Related Data Allergies/Adverse Reactions: No Known Allergies Allergy (Verified 10/18/19 08:31) Past Medical History - Social History Smoking Status: Never Smoker Chew tobacco use (# tins/day): No Frequency of alcohol use: None Drug Abuse: None Family History: Reviewed & Not Pertinent Patient has suicidal ideation: No Patient has homicidal ideation: No - Past Medical History Cardiac Medical History: Denies: Hx Heart Attack, Hx Hypertension Pulmonary Medical History: Reports: Hx Asthma Neurological Medical History: Denies: Hx Cerebrovascular Accident, Hx Seizures Renal/ Medical History: Denies: Hx Peritoneal Dialysis GI Medical History: Denies: Hx Hepatitis, Hx Hiatal Hernia, Hx Ulcer Musculoskeletal Medical History: Reports Hx Musculoskeletal Trauma Psychiatric Medical History: Reports: Hx Attention Deficit Hyperactivity Disorder, Hx Bipolar Disorder, Hx Depression, Hx Post Traumatic Stress Disorder Infectious Medical History: Denies: Hx Hepatitis Past Surgical History: Reports: Hx Oral Surgery - wisdom, Hx Tonsillectomy. Denies: Hx Mastectomy, Hx Open Heart Surgery, Hx Pacemaker - Immunizations Immunizations up to date: Yes Hx Diphtheria, Pertussis, Tetanus Vaccination: Yes Physical Exam - Vital signs Vitals: Temp Pulse Resp BP Pulse Ox 98.2 F 101 H 18 140/79 H 100 10/18/19 08:16 10/18/19 08:16 10/18/19 08:16 10/18/19 08:16 10/18/19 08:16 Course - Vital Signs Vital signs: Temp Pulse Resp BP Pulse Ox 98.2 F 101 H 18 140/79 H 100 10/18/19 08:16 10/18/19 08:16 10/18/19 08:16 10/18/19 08:16 10/18/19 08:16 Discharge - Discharge Clinical Impression: Allergic conjunctivitis Qualifiers: Laterality: right Qualified Code(s): H10.11 - Acute atopic conjunctivitis, right eye Condition: Stable Disposition: HOME, SELF-CARE Instructions: Conjunctivitis, Allergic Additional Instructions: Your exam is most consistent with allergic conjunctivitis. At this time I have given you a prescription for erythromycin gel. If the white part of your eye becomes distinctly more red you need to stop going to work and start using the prescription. If your eye stays the same as it is now you do not need to use the medication and you are safe to go to work. Prescriptions: Erythromycin Base in Ethanol [Erythromycin 2% Gel] 1 applic OD Q4 5 Days #30 gel..gm. Forms: Return to Work Referrals: BUTCH JACQUES MD [ACTIVE STAFF] - Follow up in 3-5 days
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
[2019-10-18 09:41] VITALS: BP 120/73
== END 2019-10-18 09:30 | disposition home or self-care (01) ==
LOC: ER 08:16
DX: H10.11 Acute atopic conjunctivitis, right eye (principal); H57.11 Ocular pain, right eye; J45.909 Unspecified asthma, uncomplicated
CPT/HCPCS: 99282

== ENCOUNTER 2019-10-21 22:07 | Emergency (ER) | payer MEDICAID ==
[2019-10-21 22:12] VITALS: BP 119/70
[2019-10-21] MEDS ORDERED: IBUPROFEN 600 MG TABLET PO ONE (22:19)
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
== END 2019-10-22 00:15 | disposition home or self-care (01) ==
LOC: ER 22:07
DX: S80.01XA Contusion of right knee, initial encounter (principal); M79.604 Pain in right leg; Y04.2XXA Assault by strike against or bumped into by another person, initial encounter; F17.200 Nicotine dependence, unspecified, uncomplicated
CPT/HCPCS: 99283; 73564; 73590; J3490

== ENCOUNTER → 2019-11-06 | Outpatient (CLI) | payer MEDICAID ==
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
[2019-11-06 12:30] VITALS: BP 107/64
[2019-11-06 12:58] LABS: A TYPE INFLUENZA AG NEGATIVE (NEGATIVE); B INFLUENZA AG NEGATIVE (NEGATIVE)
== END ==
LOC: RDC 10:52
PROVIDERS: ATTEND Registered Nurse
DX: Z20.828 Contact with and (suspected) exposure to other viral communicable diseases (principal)
CPT/HCPCS: 87070; 87804; 87880

== ENCOUNTER 2019-11-30 11:15 | Emergency (ER) | payer MEDICAID ==
[2019-11-30 11:59] LABS: A TYPE INFLUENZA AG NEGATIVE (NEGATIVE); B INFLUENZA AG NEGATIVE (NEGATIVE)
--- NOTE | 2019-11-30 12:31 | ER Document Report ---
Entered by LONNIE YEE SCRIBE 11/30/19 1211 Acting as scribe for:RODY RIZO MD ED General - General Chief Complaint: Sore Throat Stated Complaint: SORE THROAT Time Seen by Provider: 11/30/19 11:33 Mode of Arrival: Ambulatory Information source: Patient Notes: This 19-year-old female patient presents to the emergency department today with complaints of nasal congestion, sore throat, and a cough for the last few weeks. Patient states she has been seen for this in the past and was put on Claritin. Patient was tested for COVID-19 as well a few weeks ago which was negative. Patient states that she works at a [employer] and this exacerbates her cough. Patient denies fevers. TRAVEL OUTSIDE OF THE [place] IN LAST 30 DAYS: No - Related Data Allergies/Adverse Reactions: prednisone Allergy (Verified 10/21/19 22:34) ondansetron [From Zofran] Adverse Reaction (Verified 10/21/19 22:34) Past Medical History - General Information source: Patient - Social History Smoking Status: Current Every Day Smoker Cigarette use (# per day): No - vapes Chew tobacco use (# tins/day): No Smoking Education Provided: No Frequency of alcohol use: None Drug Abuse: None Lives with: Family Family History: Reviewed & Not Pertinent Patient has homicidal ideation: No Pulmonary Medical History: Reports: Hx Asthma Musculoskeletal Medical History: Reports Hx Musculoskeletal Trauma Psychiatric Medical History: Reports: Hx Attention Deficit Hyperactivity Disorder, Hx Bipolar Disorder, Hx Depression, Hx Post Traumatic Stress Disorder Past Surgical History: Reports: Hx Oral Surgery - wisdom, Hx Tonsillectomy - Immunizations Immunizations up to date: Yes Hx Diphtheria, Pertussis, Tetanus Vaccination: Yes Review of Systems - Review of Systems Constitutional: No symptoms reported EENT: See HPI, Nose congestion, Throat pain Cardiovascular: No symptoms reported Respiratory: See HPI, Cough Gastrointestinal: No symptoms reported Genitourinary: No symptoms reported Female Genitourinary: No symptoms reported Musculoskeletal: No symptoms reported Skin: No symptoms reported Hematologic/Lymphatic: No symptoms reported Neurological/Psychological: No symptoms reported -: Yes All other systems reviewed and negative Physical Exam - Vital signs Vitals: Temp Pulse Resp BP Pulse Ox 98.2 F 75 18 128/80 H 98 11/30/19 11:20 11/30/19 11:20 11/30/19 11:20 11/30/19 11:20 11/30/19 11:20 - Notes Notes: Physical Exam: General: Alert, appears well. HEENT: Normocephalic. Atraumatic. PERRL. Extraocular movements intact. Oropharynx clear. Nasal congestion. No posterior oropharynx erythema or exudate. Neck: Supple. Non-tender. Respiratory: No respiratory distress. Rhonchi with forced cough. Cardiovascular: Regular rate and rhythm. Abdominal: Normal Inspection. Non-tender. No distension. Normal Bowel Sounds. Back: No gross abnormalities. Extremities: Moves all four extremities. Upper extremities: Normal inspection. Normal ROM. Lower extremities: Normal inspection. No edema. Normal ROM. Neurological: Normal cognition. AAOx4. Normal speech. Psychological: Normal affect. Normal Mood. Skin: Warm. Dry. Normal color. Course - Vital Signs Vital signs: Temp Pulse Resp BP Pulse Ox 98.4 F 65 17 121/62 100 11/30/19 13:00 11/30/19 13:00 11/30/19 13:00 11/30/19 13:00 11/30/19 13:00 Discharge - Discharge Clinical Impression: Viral upper respiratory tract infection with cough Condition: Stable Disposition: HOME, SELF-CARE Additional Instructions: Upper Respiratory Illness You have a viral infection of the respiratory passages -- a "cold." This common infection causes nasal congestion, drainage, and often sore throat and cough. It is caused by a virus and is highly contagious. The disease usually lasts a week or more, though the worst symptoms are usually over in 3 or 4 days. There is no "cure" for the viral infection -- it must run its course. If there is a complication, such as bacterial infection in the nose, sinuses, middle ear, or bronchial tubes, antibiotics may be required, but antibiotics won't affect the virus. If you smoke, you should STOP!! Drink plenty of fluids. A humidifier may help. An expectorant medication or decongestant may make you more comfortable. Use acetaminophen or ibuprofen for fever or aches. See the doctor if fever persists over two or three days, if there is any significant worsening of your symptoms, or if you simply fail to improve as expected. Take medications as prescribed to help control your cough. Try taking the generic version of Delsym DM for additional cough suppression. Drink plenty of fluids and get plenty of rest. Take Tylenol and ibuprofen for sore throat. Continue taking your allergy medications, as this will probably help the nasal drainage some. Follow-up with your primary care provider if not improving over the next 1 to 2 weeks. RETURN TO THE EMERGENCY ROOM IF ANY NEW OR WORSENING SYMPTOMS. Prescriptions: Benzonatate [Tessalon Perles 100 mg Capsule] 100 mg PO ASDIR PRN #30 capsule PRN Reason: Forms: Return to Work I personally performed the services described in the documentation, reviewed and edited the documentation which was dictated to the scribe in my presence, and it accurately records my words and actions.
[2019-11-30 13:02] VITALS: BP 121/62
== END 2019-11-30 12:35 | disposition home or self-care (01) ==
LOC: ER 11:15
DX: J06.9 Acute upper respiratory infection, unspecified (principal); B97.89 Other viral agents as the cause of diseases classified elsewhere; J02.9 Acute pharyngitis, unspecified; R09.81 Nasal congestion; R05 Cough; Z88.8 Allergy status to other drugs, medicaments and biological substances; F17.290 Nicotine dependence, other tobacco product, uncomplicated; J45.909 Unspecified asthma, uncomplicated
CPT/HCPCS: 87070; 87804; 87880; 99283

== ENCOUNTER 2020-03-04 09:11 | Emergency (ER) | payer MEDICAID ==
[2020-03-04 10:27] LABS: APPEARANCE,URINE SLIGHTLY-CLOUDY; BILIRUBIN,URINE NEGATIVE (NEGATIVE); COLOR,URINE YELLOW; GLUCOSE, URINE NEGATIVE (NEGATIVE); KETONES,URINE NEGATIVE (NEGATIVE); LEUKOCYTE ESTERASE,URINE TRACE (NEGATIVE); NITRITE,URINE NEGATIVE (NEGATIVE); PROTEIN,URINE NEGATIVE (NEGATIVE); URINE SPECIFIC GRAVITY 1.027; UROBILINOGEN,URINE NEGATIVE mg/dL (<2.0)
[2020-03-04 10:57] LABS: ABSOLUTE EOSINOPHILS # (AUTO) 0.1 10^3/uL (0.0-0.6); ABSOLUTE LYMPHOCYTES (AUTO) 2.4 10^3/uL (0.5-4.7); ABSOLUTE MONOCYTES (AUTO) 0.4 10^3/uL (0.1-1.4); ABSOLUTE NEUT (AUTO) 2.7 10^3/uL (1.7-8.2); BASOPHILS % (AUTO) 0.6 % (0-2); EOSINOPHILS % (AUTO) 1.3 % (0-6); HEMATOCRIT 42.1 % (36.0-47.0); HEMOGLOBIN 14.3 g/dL (12.0-15.5); LYMPHOCYTES % (AUTO) 42.3 % (13-45); MEAN CORPUSCULAR HEMOGLOBIN 30.1 pg (27.0-33.4); MEAN CORPUSCULAR VOLUME 88 fl (80-97); MONOCYTES % (AUTO) 7.8 % (3-13); PLATELET COUNT 222 10^3/uL (150-450); RED BLOOD COUNT 4.76 10^6/uL (3.72-5.28); RED CELL DISTRIBUTION WIDTH 13.8 % (11.5-14.0); TOTAL CELLS COUNTED % (AUTO) 100 %; WHITE BLOOD COUNT 5.6 10^3/uL (4.0-10.5)
[2020-03-04 11:16] LABS: ALBUMIN 4.6 g/dL (3.5-5.0); ALKALINE PHOSPHATASE 81 U/L (38-126); ANION GAP 8 (5-19); ASPARTATE AMINO TRANSFERASE 23 U/L (14-36); BILIRUBIN,TOTAL 0.4 mg/dL (0.2-1.3); BLOOD UREA NITROGEN 14 mg/dL (7-20); CALCIUM 9.7 mg/dL (8.4-10.2); CARBON DIOXIDE 27 mmol/L (22-30); CHLORIDE 103 mmol/L (98-107); GLUCOSE 89 mg/dL (75-110); POTASSIUM 4.2 mmol/L (3.6-5.0); TOTAL PROTEIN 7.9 g/dL (6.3-8.2)
--- NOTE | 2020-03-04 12:14 | ER Document Report ---
Entered by LONNIE YEE SCRIBE 03/04/20 1113 Acting as scribe for:RODY RIZO MD ED GI/ - General Chief Complaint: Nausea/Vomiting Stated Complaint: VOMITING,BACK PAIN Time Seen by Provider: 03/04/20 11:12 Information source: Patient Notes: This 19 year old female patient presents to the emergency department today with complaints of her menstrual period being 13 days late. Patient reports that there is a possibility that she is . She reports she has low back pain and vomiting for one week. TRAVEL OUTSIDE OF THE [place] IN LAST 30 DAYS: No - Related Data Allergies/Adverse Reactions: prednisone Allergy (Verified 10/21/19 22:34) ondansetron [From Zofran] Adverse Reaction (Verified 10/21/19 22:34) Home Medications: Zoloft, Vivance Past Medical History - General Information source: Patient - Social History Smoking Status: Current Every Day Smoker Cigarette use (# per day): No - vape Frequency of alcohol use: None Drug Abuse: None Lives with: Spouse/Significant other Family History: Reviewed & Not Pertinent Pulmonary Medical History: Reports: Hx Asthma Musculoskeletal Medical History: Reports Hx Musculoskeletal Trauma Psychiatric Medical History: Reports: Hx Attention Deficit Hyperactivity Disorder, Hx Bipolar Disorder, Hx Depression, Hx Post Traumatic Stress Disorder Past Surgical History: Reports: Hx Adenoidectomy, Hx Oral Surgery - wisdom, Hx Tonsillectomy - Immunizations Immunizations up to date: Yes Hx Diphtheria, Pertussis, Tetanus Vaccination: Yes Review of Systems - Review of Systems Constitutional: No symptoms reported EENT: No symptoms reported Cardiovascular: No symptoms reported Respiratory: No symptoms reported Gastrointestinal: See HPI, Vomiting Genitourinary: No symptoms reported Female Genitourinary: See HPI, Last menstrual period - "13 days late", - possible Musculoskeletal: See HPI, Back pain Skin: No symptoms reported Hematologic/Lymphatic: No symptoms reported Neurological/Psychological: No symptoms reported -: Yes All other systems reviewed and negative Physical Exam - Vital signs Vitals: Temp Pulse Resp BP Pulse Ox 98.4 F 66 18 118/57 L 98 03/04/20 09:26 03/04/20 09:26 03/04/20 09:26 03/04/20 09:26 03/04/20 09:26 - Notes Notes: Physical Exam: General: Alert, appears well. HEENT: Normocephalic. Atraumatic. PERRL. Extraocular movements intact. Oropharynx clear. Neck: Supple. Non-tender. Respiratory: No respiratory distress. Clear and equal breath sounds bilaterally. Cardiovascular: Regular rate and rhythm. Abdominal: Obese. Non-tender. No distension. Normal Bowel Sounds. Back: Lumbar and sacral paraspinal musculature tenderness with palpation. No gross abnormalities. Extremities: Moves all four extremities. Upper extremities: Normal inspection. Normal ROM. Lower extremities: Normal inspection. No edema. Normal ROM. Neurological: Normal cognition. AAOx4. Normal speech. Psychological: Normal affect. Normal Mood. Skin: Warm. Dry. Normal color. Course - Vital Signs Vital signs: Temp Pulse Resp BP Pulse Ox 98.4 F 66 18 118/57 L 98 03/04/20 09:26 03/04/20 09:26 03/04/20 09:26 03/04/20 09:26 03/04/20 09:26 - Laboratory Result Diagrams: 03/04/20 10:26 03/04/20 10:26 Laboratory results interpreted by me: 03/04/20 09:50 Urine Blood SMALL H Ur Leukocyte Esterase TRACE H Discharge - Discharge Clinical Impression: Nausea and vomiting Qualifiers: Vomiting type: unspecified Vomiting Intractability: non-intractable Qualified Code(s): R11.2 - Nausea with vomiting, unspecified Low back pain Qualifiers: Chronicity: unspecified Back pain laterality: bilateral Sciatica presence: without sciatica Qualified Code(s): M54.5 - Low back pain Condition: Stable Disposition: HOME, SELF-CARE Additional Instructions: Nausea or Vomiting, Nonspecific Vomiting (or nausea without vomiting) can be caused by many different problems. Of course, it can mean that something's wrong with the stomach, such as "stomach flu," ulcers, or inflammation. But it can also be a symptom of a problem that has nothing to do with the stomach or intestines. Vomiting is common with severe headaches, earaches, and tonsillitis. We see it with pneumonia or heart attacks. Drugs can cause nausea. Many abdominal problems cause vomiting; for example, gallstones, kidney stones, pancreatitis, and intestinal obstruction (blocked bowels). In most cases, curing the vomiting depends on fixing the problem that caused it. For temporary relief, we may use an anti-nausea medicine. For home use, we can prescribe suppositories, chewable pills, pills that dissolve in the mouth, or liquid anti-nausea drugs. If the vomiting seems to be caused by a problem in the stomach, acid-suppressing drugs may be prescribed as well. It's important to avoid dehydration. Sip clear liquids. Take increasing amounts of fluid over the first 24 hours. Then start small amounts of bland foods (such as dry toast, applesauce, mashed potato). Avoid aspirin, tobacco, and alcohol. Gradually resume your usual diet. If the vomiting worsens, if the problem that's making you vomit worsens, or if there's evidence of bleeding in the stomach (such as black, tarry stool, bloody or black vomit, or lightheadedness), you should return immediately. Call your doctor if you aren't improved in 24 to 36 hours. Low Back Pain Three out of every four people will have an episode of disabling back pain during their lifetime. Most commonly the pain is due to straining of the muscles and ligaments in the low back. Usual treatment includes: (1) Rest on a firm surface. Avoid lying on your stomach. (2) Ice pack the painful area. After a few days, gentle heat may be used intermittently to relax the area, or ice packs can be continued. (3) Medication may be needed -- muscle relaxers and antiinflammatory medicines are commonly used. (4) As the back improves, exercises are prescribed to strengthen the back and abdominal muscles. Your doctor will advise you on the proper care for your back at each stage in your recovery. You may be better in a few days -- or healing may take several weeks. If new symptoms of a "herniated disc" (radiation of pain, numbness, or tingling down the back of the leg or weakness in the leg) occur, you should be re-examined. Further testing may be necessary. A serum hCG test today was negative. Take medication as prescribed for nausea if needed. Drink plenty of cool clear liquids throughout the day. Take Tylenol and ibuprofen for your low back pain as needed. Follow-up with your primary care provider if not improving. RETURN TO THE EMERGENCY ROOM IF ANY NEW OR WORSENING SYMPTOMS. Prescriptions: Metoclopramide HCl [Reglan 10 mg Tablet] 1 tab PO ASDIR PRN #15 tablet PRN Reason: I personally performed the services described in the documentation, reviewed and edited the documentation which was dictated to the scribe in my presence, and it accurately records my words and actions.
[2020-03-04 13:00] VITALS: BP 110/59
== END 2020-03-04 13:03 | disposition home or self-care (01) ==
LOC: ER 09:11
DX: R11.2 Nausea with vomiting, unspecified (principal); M54.5 Low back pain; F17.290 Nicotine dependence, other tobacco product, uncomplicated; J45.909 Unspecified asthma, uncomplicated; Z88.8 Allergy status to other drugs, medicaments and biological substances; Z79.899 Other long term (current) drug therapy
CPT/HCPCS: 36415; 80053; 81001; 84703; 85025; 99283